=== PATIENT | male | born 1995 | race Caucasian/White ===

== ENCOUNTER 2017-10-08 23:57 | Emergency (ER) | payer OTHER ==
[2017-10-09 00:26] VITALS: BMI 24.3
[2017-10-09] MEDS ORDERED: ACETAMINOPHEN 1000 MG/100 ML VIAL (NON FORMULARY) IVPB ONE (00:40)
[2017-10-09] MEDS ORDERED: SODIUM CHLORIDE 1,000 ML IV STA ×2 (00:40→03:18)
--- NOTE | 2017-10-09 00:53 | PDOC ---
History of Present Illness - General Chief Complaint: Shortness of Breath Stated Complaint: RESPIRATORY Time Seen by Provider: 10/09/17 00:31 - History of Present Illness Initial Comments: 10/09/17 00:49 22 M with no PMH presents to ED with right sided chest pain and SOB. Pt states that his symptoms started last night. He reports R sided pleuritic chest pain. He denies cough but endorses fevers and chills. Pt states that he went to [facility] earlier today and had an X ray and bloodwork. He was diagnosed with pneumonia and sent home with Z-pack and naproxen. However, pt states that when he went to bed tonight, the pain worsened. He states that he is unable to lie flat because of the pain. Pt denies leg swelling or calf pain. Denies recent travel/immobilization. No h/o DVT/PE. Past History - Past Medical History Allergies/Adverse Reactions: Allergies Allergy/AdvReac Type Severity Reaction Status Date / Time No Known Allergies Allergy Verified 10/09/17 00:17 Home Medications: Ambulatory Orders NK [No Known Home Medication] 10/09/17 - Suicide/Smoking/Psychosocial Hx Smoking History: Never smoked Have you smoked in the past 12 months: No Information on smoking cessation initiated: No Hx Alcohol Use: No Drug/Substance Use Hx: No Review of Systems - Review of Systems Comments:: 10/09/17 00:51 "GENERAL/CONSTITUTIONAL: No fever or chills. No weakness. HEAD, EYES, EARS, NOSE AND THROAT: No change in vision. No ear pain or discharge. No sore throat. CARDIOVASCULAR: + chest pain + shortness of breath. RESPIRATORY: No cough, wheezing, or hemoptysis. GASTROINTESTINAL: No nausea, vomiting, diarrhea or constipation. GENITOURINARY: No dysuria, frequency, or change in urination. MUSCULOSKELETAL: No joint or muscle swelling or pain. No neck or back pain. SKIN: No rash NEUROLOGIC: No headache, vertigo, loss of consciousness, or change in strength/ sensation. ENDOCRINE: No increased thirst. No abnormal weight change. HEMATOLOGIC/LYMPHATIC: No anemia, easy bleeding, or history of blood clots. ALLERGIC/IMMUNOLOGIC: No hives or skin allergy. " *Physical Exam - Vital Signs Last Vital Signs Temp Pulse Resp BP Pulse Ox 98 F 98 H 16 111/69 98 10/09/17 03:11 10/09/17 03:39 10/09/17 03:39 10/09/17 03:39 10/09/17 03:40 - Physical Exam Comments: 10/09/17 00:51 "GENERAL: Awake, alert, and fully oriented, in no acute distress. HEAD: No signs of trauma EYES: PERRLA, EOMI, sclera anicteric, conjunctiva clear ENT: Auricles normal inspection, hearing grossly normal, nares patent, oropharynx clear without exudates. Moist mucosa NECK: Nontender, no stepoffs, Normal ROM, supple, no lymphadenopathy, JVD, or masses LUNGS: Breath sounds equal, clear to auscultation bilaterally. No wheezes, and no crackles HEART: Regular rate and rhythm, normal S1 and S2, no murmurs, rubs or gallops ABDOMEN: Soft, nontender, normoactive bowel sounds. No guarding, no rebound. No masses EXTREMITIES: Normal range of motion, no edema. No clubbing or cyanosis. No cords, erythema, or tenderness NEUROLOGICAL: Cranial nerves II through XII intact. 5/5 strength and sensation in all extremities, Normal speech, normal gait, normal cerebellar function SKIN: Warm, Dry, normal turgor, no rashes or lesions noted. " Heart Score/ECG Review - History History: Slightly suspicious - Electrocardiogram EKG: Normal - Age Age: </= 45 - Risk Factors Based on the list above the patient has:: No risk factors known - Troponin Troponin: </= normal limit - Score Heart Score - Total: 0 - ECG Impressions Comment:: 10/09/17 00:52 Sinus tachycardia, no FAHAD/STDs, no TWIs, axis wnl, intervals wnl, Rate 119 ED Treatment Course - LABORATORY CBC & Chemistry Diagram: 10/09/17 00:50 10/09/17 00:50 - ADDITIONAL ORDERS Additional order review: Laboratory Results 10/09/17 10/09/17 10/09/17 00:50 00:50 00:50 D-Dimer < 200 Sodium 137 Potassium 4.2 Chloride 100 Carbon Dioxide 25 Anion Gap 12 BUN 7 Creatinine 0.8 Creat Clearance w eGFR > 60 Random Glucose 90 Calcium 9.5 Total Bilirubin 0.8 AST 21 ALT 54 Alkaline Phosphatase 103 Creatine Kinase 62 Troponin I < 0.02 B-Natriuretic Peptide 23.80 Total Protein 8.8 H Albumin 4.4 10/09/17 00:50 Influenza Types A,B Antigen - Preliminary Nasopharyngeal Swab - Preliminary 10/09/17 00:50 RBC 7.14 H MCV 61.1 L MCHC 31.5 L RDW 15.7 MPV 8.9 Neutrophils % 73.7 Lymphocytes % 12.7 Monocytes % 13.2 H Eosinophils % 0.1 Basophils % 0.3 - RADIOLOGY Radiology Studies Ordered: Category Date Time Status CHEST PA & LAT [RAD] Stat Radiology 10/09/17 00:38 Taken - Medications Given in the ED: ED Medications Discontinued Medications Generic Name Dose Route Start Last Admin Trade Name Freq PRN Reason Stop Dose Admin Acetaminophen 1,000 mg 10/09/17 00:40 10/09/17 01:55 Ofirmev Injection - IVPB 10/09/17 00:41 1,000 mg ONCE ONE Administration Sodium Chloride 1,000 mls @ 1,000 mls/hr 10/09/17 00:40 10/09/17 01:56 Normal Saline - IV 10/09/17 01:39 1,000 mls/hr ASDIR STA Administration Medical Decision Making - Medical Decision Making 10/09/17 00:52 22 M with R sided chest pain and SOB. Febrile in ED and tachycardic. Pt was diagnosed with PNA at [facility] but has no findings on lung exam consistent with this. Will repeat XR to confirm diagnosis. Also consider viral URI. Consider PE as well given pleuritic nature of pain. - Labs, trop, Ddimer - CXR - IVF, tylenol 10/09/17 03:15 Labs with elevated WBC. Trop and dimer negative. CXR with poor inspiratory effort but no obvious consolidation on prelim read. Flu swab negative. Pt reassessed - now feels much better, with no chest pain. Pt with stable vitals, well appearing. clinically stable for DC I discussed the physical exam findings, ancillary test results and final diagnoses with the patient. I answered all of the patient's questions. The patient was satisfied with the care received and felt comfortable with the discharge plan and treatment plan. The patient agrees to follow up with the primary care physician within 24-72 hours. *DC/Admit/Observation/Transfer Diagnosis at time of Disposition: Chest pain - Referrals Referrals: Elise Fitch MD [Primary Care Provider] - - Patient Instructions Printed Discharge Instructions: DI for Atypical Chest Pain Additional Instructions: Continue taking your antibiotics as prescribed. If you experience worsening chest pain, shortness of breath, or any other concerning symptoms, return to the ER immediately. Otherwise, follow up with your primary doctor within 1 week. - Post Discharge Activity - Attestations Physician Attestion: 10/09/17 03:36 I, Dr. Narciso Singh MD, attest that this document has been prepared under my direction and personally reviewed by me in its entirety. I further attest, that it accurately reflects all work, treatment, procedures and medical decision -making performed by me.
[2017-10-09 01:08] LABS: BASO % 0.3 % (0-2.0); EOS % 0.1 % (0-4.5); HEMATOCRIT 43.6 % (35.4-49); HEMOGLOBIN 13.7 GM/dL (11.7-16.9); LYMPH % 12.7 % (8-40); MCHC 31.5 g/dl (32.0-35.9); MEAN CELL VOLUME 61.1 fl (80-96); MEAN PLT VOLUME 8.9 fl (7.5-11.1); MONO % 13.2 % (3.8-10.2); NEUT % 73.7 % (42.8-82.8); PLATELET COUNT 294 K/MM3 (134-434); RDW 15.7 % (11.9-15.9)
[2017-10-09 01:19] LABS: MCH 19.2 pg (25.7-33.7); RBC 7.14 M/mm3 (4.00-5.60)
[2017-10-09 01:35] LABS: ALBUMIN 4.4 g/dl (3.4-5.0); ALK PHOS 103 U/L (45-117); ANION GAP 12 (8-16); BILIRUBIN,TOTAL 0.8 mg/dL (0.2-1.0); BLOOD UREA NITROGEN 7 mg/dL (7-18); CALCIUM 9.5 mg/dL (8.5-10.1); CHLORIDE 100 mmol/L (98-107); CO2 25 mmol/L (21-32); CREATININE 0.8 mg/dL (0.7-1.3); GLUCOSE,RANDOM 90 mg/dL (74-106); POTASSIUM 4.2 mmol/L (3.5-5.1); SGOT/AST 21 U/L (15-37); SGPT/ALT 54 U/L (12-78); SODIUM 137 mmol/L (136-145); TOT PROT 8.8 g/dl (6.4-8.2)
[2017-10-09] MEDS ORDERED: ACETAMINOPHEN INJECTION 100 ML IVPB ONE (01:43)
[2017-10-09 02:47] LABS: ANISOCYTOSIS 1+; PLATELET ESTIMATE NORMAL
[2017-10-09 03:12] VITALS: TEMP 98
[2017-10-09 03:40] VITALS: BP 111/69; PULSE 98
--- NOTE | 2017-10-09 10:10 | EKG ---
Test Reason : Blood Pressure : / mmHG Vent. Rate : 119 BPM Atrial Rate : 119 BPM P-R Int : 160 ms QRS Dur : 086 ms QT Int : 314 ms P-R-T Axes : 058 038 023 degrees QTc Int : 441 ms SINUS TACHYCARDIA NO PREVIOUS ECGS AVAILABLE Confirmed by MAGDALENA SNELL MD ([id number]) on 10/09/2017 10:09:57 AM Referred By: Confirmed By:MAGDALENA SNELL MD
== END 2017-10-09 04:01 | disposition home or self-care (01) ==
LOC: JER 23:57
PROC: 3E0337Z Introduction of Electrolytic and Water Balance Substance into Peripheral Vein, Percutaneous Approach (ICD-10-PCS; principal; 2017-10-08)
PROC: 3E033NZ Introduction of Analgesics, Hypnotics, Sedatives into Peripheral Vein, Percutaneous Approach (ICD-10-PCS; 2017-10-08)
DX: R07.89 Other chest pain (principal)
CPT/HCPCS: 36415; 71046-TC-FY; 80053; 82550; 83880; 84484; 85025; 85379; 87804; 93005; 93010; 99283-25; J0131; J7030